=== PATIENT | female | born 1985 | race Caucasian/White ===

== ENCOUNTER 2024-03-13 15:22 | Emergency (ER) | payer OTHER, SELFPAY ==
[2024-03-13 15:24] VITALS: BP 181/110
[2024-03-13 15:48] LABS: Urine Albumin Negative (Neg - Trace); Urine Bilirubin Negative (Negative); Urine Character Clear (Clear); Urine Color Yellow; Urine Glucose Negative (Negative); Urine Ketone Negative (Negative); Urine Leukocyte Trace (Negative); Urine Nitrite Positive (Negative); Urine Occult Blood 2+ (Negative); Urine Urobilinogen 2+ (Neg - 1+)
[2024-03-13 15:49] LABS: % Basophils 0.4 % (0-2); % Eosinophils 0.6 % (0-6); % Immature Granulocytes 0.4 % (0-0.5); % Lymphocytes 20.2 % (20.5-51.1); % Monocytes 11.6 % (1.7-9.3); % Neutrophils 66.8 % (42.2-75.2); Absolute Eosinophils 0.1 10^3/uL (0-0.7); Absolute Lymphocytes 1.6 10^3/uL (1.2-3.4); Absolute Monocytes 0.9 10^3/uL (0.1-0.6); Absolute Neutrophils 5.2 10^3/uL (1.4-6.5); Hematocrit 42.7 % (37.0-47.0); Hemoglobin 14.6 g/dL (12.0-16.0); Mean Corp Hgb Conc. 34.2 g/dL (33.0-37.0); Mean Corpuscular Hgb 31.1 pg (27.0-31.0); Mean Corpuscular Volume 90.9 fL (81.0-99.0); Mean Platelet Volume 10.2 fL (7.4-10.4); Nucleated Red Blood Cells % 0 %; Platelet Count 215 10^3/uL (130-400); Red Cell Dist. Width 12.2 % (11.5-14.5); White Blood Cell Count 7.7 10^3/uL (4.8-10.8)
[2024-03-13 15:51] LABS: HCG, Urine Qualitative Screen Negative
[2024-03-13 16:05] LABS: ALT (SGPT) 59 U/L (0-35); AST (SGOT) 56 U/L (14-36); Alkaline Phosphatase 104 U/L (38-126); Blood Urea Nitrogen 10 mg/dl (7-17); Calcium 9.4 mg/dl (8.4-10.2); Carbon Dioxide 25 mmol/L (22-30); Chloride 100 mmol/L (98-107); Glucose 99 mg/dl (70-99); Potassium 3.9 mmol/L (3.5-5.1); Sodium 138 mmol/L (135-145); Total Bilirubin 1.1 mg/dl (0.2-1.3); eGFR > 60.00
[2024-03-13 16:51] LABS: Urine Bacteria Moderate (Negative); Urine White Cell 0-2 /HPF (0-5)
[2024-03-13 17:29] VITALS: BP 126/77
--- NOTE | 2024-03-13 17:30 | ED.GENMED ---
History of Present Illness
<Maricruz Neal PA-C - Last Filed: 03/16/24 09:03>
General
Chief Complaint: Flank Pain
Source: patient
Exam Limitations: none
Time Seen by Provider: 03/13/24 17:12
Nursing documentation reviewed up to this point in time: agreed with
History of Present Illness
History of Present Illness:
Patient is a 38-year-old female presenting for evaluation emergency department of nausea and associated right upper quadrant abdominal pain. Patient states she was driving to work yesterday when she had acute onset nausea. Waves of nausea have
been intermittent since yesterday and associated with some pain in her epigastric/right upper quadrant. Pain does somewhat radiate around to her right mid back. Patient also endorses subjective fever and chills at home. Patient does not notice
any association of abdominal pain to eating. However�patient has not eaten anything since Monday due to her nausea. Patient denies any chest pain, shortness of breath, hematuria, dysuria, diarrhea or constipation.
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 She has had a past appendectomy. Patient has also had a few instances of pyelonephritis in the past.
Review of Systems
<Maricruz Neal PA-C - Last Filed: 03/16/24 09:03>
Review of Systems
Allergies reviewed?: Yes
All Other Systems: ROS reviewed and negative except as documented in HPI and ROS
Phy Exam
<Maricruz Neal PA-C - Last Filed: 03/16/24 09:03>
Physical Exam
Physical Exam:
Vitals: Patient's vital signs are stable. Afebrile
General: Patient is well appearing, no acute distress. Nontoxic-appearing
Skin: Warm and dry, no rashes or lesions
Head: Normocephalic, atraumatic
Eyes: Sclera nonicteric. EOMs intact. No nystagmus.
Throat: Protecting airway
Neck: Normal ROM, no cervical spine tenderness, no meningismus
Cardiac: Regular rate and rhythm, no murmurs.
Pulm: Normal respiratory effort, no wheezes, rales, rhonchi heard on exam.
Abdomen: Abdomen soft. Mild right upper quadrant abdominal tenderness. Some mild right lower quadrant abdominal tenderness. No rebound tenderness or guarding. Well-healing scar on right lower quadrant from prior appendectomy. No CVA tenderness
bilaterally. No rashes or ecchymoses.
Extremities: No evidence of cyanosis or edema. Great distal pulses
Neuro: AAOx3. CN II-XII intact. No focal neurologic deficits.
Psychiatric: Normal affect.
Course
<Maricruz Neal PA-C - Last Filed: 03/16/24 09:03>
Orders/Labs/Results
Orders:
Orders
03/13/24 15:28
Test Result ONCE
03/13/24 15:35
Complete Blood Count/With Diff Urgent
Comprehensive Metabolic Panel Urgent
03/13/24 15:36
, Urine Qualitative Screen [HCG, Urine Qualitative Screen] Urgent
Date Specimen was Collected: 03/13/24
Time Specimen was Collected: 15:28
Urinalysis Reflex To Culture Urgent
Date Specimen was Collected: 03/13/24
Time Specimen was Collected: 15:28
Urine Microscopic Reflex Cult Urgent
Urine Culture Urgent
MORENA Source: U
Specimen Description:
Date Specimen was Collected: 03/13/24
Time Specimen was Collected: 15:28
03/13/24 17:40
0.9% Sodium Chloride 1000 ml [Nss] 1,000 ml IV BOLUS
Ketorolac [Toradol] 15 mg IV NOW STA
Ondansetron Injectable [Zofran] 4 mg IV NOW STA
03/13/24 17:41
CT Abd/pelvis W Iv Cont Urgent
Comment: hx pyelonephritis and right ovarian torsion
Reason For Exam: Right upper abdominal pain, nausea
03/13/24 21:01
US Pelvis Transvaginal Only Urgent
Reason For Exam: right abd pain, h/o torsion
03/13/24 23:09
CefTRIAXone [Rocephin] 1,000 mg IV NOW STA
03/13/24 23:22
Sterile Water [Sterile Water For Injection] 10 ml .ROUTE .[facility]
Abnormal Lab Results
03/13/24 03/13/24
15:35 15:36
MCH 31.1 H pg
(27.0-31.0)
Absolute Monos (auto) 0.9 H 10^3/uL
(0.1-0.6)
Lymphocytes % 20.2 L %
(20.5-51.1)
Monocytes % 11.6 H %
(1.7-9.3)
AST 56 H U/L
(14-36)
ALT 59 H U/L
(0-35)
Ur Occult Blood Reflex 2+ A
(Negative)
Urine Nitrite (Reflex) Positive A
(Negative)
Urine Urobilinogen 2+ A
(Neg - 1+)
Leukocyte Esterase Rfl Trace A
(Negative)
Urine RBC 7-10 A /HPF
(0-2)
Urine Bacteria (Reflex) Moderate A
(Negative)
03/13/24 15:35
03/13/24 15:35
Vital Signs
Initial and Last Documented VS:
Initial Vital Signs
Temp Pulse Resp BP Pulse Ox
100.1 F 125 22 181/110 98
03/13/24 15:24 03/13/24 15:24 03/13/24 15:24 03/13/24 15:24 03/13/24 15:24
Last Documented Vital Signs
Temp Pulse Resp BP Pulse Ox
98.8 F 72 18 105/78 99
03/13/24 18:57 03/13/24 23:45 03/13/24 23:31 03/13/24 23:45 03/13/24 23:31
<Casimiro Wilkerson MD - Last Filed: 03/14/24 05:15>
Orders/Labs/Results
Orders:
Orders
03/13/24 15:28
Test Result ONCE
03/13/24 15:35
Complete Blood Count/With Diff Urgent
Comprehensive Metabolic Panel Urgent
03/13/24 15:36
, Urine Qualitative Screen [HCG, Urine Qualitative Screen] Urgent
Date Specimen was Collected: 03/13/24
Time Specimen was Collected: 15:28
Urinalysis Reflex To Culture Urgent
Date Specimen was Collected: 03/13/24
Time Specimen was Collected: 15:28
Urine Microscopic Reflex Cult Urgent
Urine Culture Urgent
MORENA Source: U
Specimen Description:
Date Specimen was Collected: 03/13/24
Time Specimen was Collected: 15:28
03/13/24 17:40
0.9% Sodium Chloride 1000 ml [Nss] 1,000 ml IV BOLUS
Ketorolac [Toradol] 15 mg IV NOW STA
Ondansetron Injectable [Zofran] 4 mg IV NOW STA
03/13/24 17:41
CT Abd/pelvis W Iv Cont Urgent
Comment: hx pyelonephritis and right ovarian torsion
Reason For Exam: Right upper abdominal pain, nausea
03/13/24 21:01
US Pelvis Transvaginal Only Urgent
Reason For Exam: right abd pain, h/o torsion
03/13/24 23:09
CefTRIAXone [Rocephin] 1,000 mg IV NOW STA
03/13/24 23:22
Sterile Water [Sterile Water For Injection] 10 ml .ROUTE .[facility]
Abnormal Lab Results
03/13/24 03/13/24
15:35 15:36
MCH 31.1 H pg
(27.0-31.0)
Absolute Monos (auto) 0.9 H 10^3/uL
(0.1-0.6)
Lymphocytes % 20.2 L %
(20.5-51.1)
Monocytes % 11.6 H %
(1.7-9.3)
AST 56 H U/L
(14-36)
ALT 59 H U/L
(0-35)
Ur Occult Blood Reflex 2+ A
(Negative)
Urine Nitrite (Reflex) Positive A
(Negative)
Urine Urobilinogen 2+ A
(Neg - 1+)
Leukocyte Esterase Rfl Trace A
(Negative)
Urine RBC 7-10 A /HPF
(0-2)
Urine Bacteria (Reflex) Moderate A
(Negative)
03/13/24 15:35
03/13/24 15:35
Vital Signs
Initial and Last Documented VS:
Initial Vital Signs
Temp Pulse Resp BP Pulse Ox
100.1 F 125 22 181/110 98
03/13/24 15:24 03/13/24 15:24 03/13/24 15:24 03/13/24 15:24 03/13/24 15:24
Last Documented Vital Signs
Temp Pulse Resp BP Pulse Ox
98.8 F 72 18 105/78 99
03/13/24 18:57 03/13/24 23:45 03/13/24 23:31 03/13/24 23:45 03/13/24 23:31
<Maricruz Neal PA-C - Last Filed: 03/16/24 09:03>
MDM/Problems Addressed
Differential Diagnosis Includes:
Not limited to: Biliary colic, choledocholithiasis, cholecystitis, pyelonephritis, nephrolithiasis, UTI, ovarian torsion, ectopic
MDM/Problems Addressed:
38-year-old female presenting with 2 days of intermittent nausea and right upper quadrant abdominal pain. Subjective fever and chills at home. No urinary symptoms, diarrhea, or constipation. Patient was both hypertensive and tachycardic on
arrival to emergency department but vital signs normalized by my first examination. Physical exam as above. She is well-appearing, in no apparent distress. Heart regular rate and rhythm. Lungs can bilaterally. Abdomen is soft with mild right
upper quadrant and right lower quadrant abdominal tenderness. No rebound tenderness or guarding. Well-healing scar in right lower quadrant from prior appendectomy. Patient is asymptomatic at this time as symptoms seem to come in waves. Labs
obtained in triage show a normal white count with mild elevation in AST and ALT. No other significant abnormalities. Urine does show blood although no clear evidence of urinary infection. Urine is positive for nitrate with moderate bacteria
although patient has no urinary symptoms and no pyuria. test is negative. Will give Toradol, Zofran, fluids. Will check CT abdomen/pelvis with IV contrast for better evaluation.
Patient does have history of ovarian torsion secondary to dermoid cyst. Low suspicion for ovarian torsion today. Plan for ultrasound if CT nondiagnostic to rule out torsion.
7:28: Into reassess patient at bedside. Patient remains comfortable. Pain well-managed with Toradol. CT report pending. At this point- case was signed out to attending physician.
Chronic conditions affecting care:
N/A
Acute Exacerbation and/or Progression of Chronic Illness:
N/A
<Maricruz Neal PA-C - Last Filed: 03/16/24 09:03>
*Pulse Oximetry
Patient hypoxic: no
*EKG
Interpreted by ED Provider?: NA
*Mainframe Programmer Analyst Interpretation
Rate: Mainframe Programmer Analyst- N/A
*Critical Care Note
Total Time (30-74mins, 75-104mins- exclusive of procedures): Not Applicable
ED Attending Note
<Maricruz Neal PA-C - Last Filed: 03/16/24 09:03>
-
Portions of this chart may have been created with voice recognition software.� Occasional wrong word or��sound alike� substitutions may have occurred due to the inherent limitations of voice recognition software.
<Casimiro Wilkerson MD - Last Filed: 03/14/24 05:15>
ED Attending Note
Patient seen and examined by attending physician: Yes
ED Attending Note:
I have seen and evaluated the patient with a [id number] encounter. I have spoken to the advance practicer provider and involved in the medical history, the physical exam, medical decision making.
Evaluation and management service: agree unless noted differently below.
Results interpretation: agree unless noted differently below.
Focused HPI: 38-year-old female with history as document presents for evaluation of right abdominal pain and nausea. Patient reports she started with nausea yesterday and in the evening began to have some right-sided abdominal/flank pain. She says
symptoms have been consistent although intensity seems to wax and wane. Came to the emergency room for assessment. She did have subjective fever and chills. She says she has not had dysuria but has had increased urgency. She denies any vaginal
bleeding or discharge. She denies any change in bowel movements. She denies any other complaints. She does have a prior history of appendectomy. She also had a prior ovarian torsion related to a large dermoid cyst that was ultimately removed,
right ovary was spared.
Physical exam: Awake alert not in distress. Hypertensive and tachycardic on arrival although vital signs normalized by my assessment. Abdomen soft, minimally tender right upper quadrant, no peritoneal signs. No CVA tenderness.
Medical Decision Makin-year-old female presents for evaluation of nausea associated with abdominal discomfort. Exam as above. Sent for labs including a CBC which was unremarkable, CMP which showed marginal elevation of transaminases but a
normal T. bili. Urinalysis showed positive nitrites with bacteria and some slight hematuria no significant pyuria. Her hCG is negative. She was initially sent for a CT of the abdomen pelvis which showed no clear acute pathology�no obstructive
nephrolithiasis, no gallstones or signs of cholecystitis, no other acute pathology noted. She does have a history of frequent UTIs and has had some urinary symptoms with abnormal urinalysis�pyelonephritis is a consideration. Given her history of
that we should rule out torsion with an ultrasound.
Ultrasound shows good flow to both ovaries. Patient appears well, she says symptoms have greatly improved with treatment here. Vital signs normal. I had a long discussion with the patient. I did explain theoretic possibility of intermittent
torsion although without cyst or mass this is much less likely. We also discussed the possibility that her 2 mm intrarenal stone could be causing intermittent transient obstructive symptoms. We also discussed the possibility of pyelonephritis as
the cause for her symptoms. She feels well enough for discharge at this point and after discussion we will plan to start her on antibiotics for possible UTI. I did explain to her that she should have a very low threshold for return including if
she is still having high fevers despite antibiotics or if she feels her pain is returning and persisting. She indicated understanding. All questions answered.
Discharge Plan
Departure
Patient Disposition: Home (Routine Discharge)
Date of Disposition: 03/13/24
Time of Disposition: 23:08
Patient with high blood pressure during this ER visit?: Yes
Discharge Problem:
Abdominal pain, UTI (urinary tract infection)
Instructions: Abdominal Pain
Prescriptions:
New
cefdinir 300 mg capsule
300 mg PO BID 7 Days Qty: 14 0RF
Referrals:
NONE,* [Family Provider] -
Activity Restrictions/Additional Instructions:
Thank you for visiting the Emergency Department at [facility].
1. Please schedule a follow up appointment as directed. Call first thing tomorrow morning to make an appointment.
2. If indicated, please take your medications as instructed and indicated on discharge paperwork.
3. If any of your symptoms do not improve, or persist, or become more severe within 6-12 hours, please return to the emergency department for further care.
4. Please return to the emergency department if you develop a headache, neck pain/stiffness, fever greater than 100.4F, chest pain, shortness of breath, persistent nausea, vomiting, slurred speech, difficulty walking, numbness/tingling, weakness,
signs of infection or any other symptoms that are worrisome to you.
Please call [phone] if you have any questions.
Interventions
Interventions:
*Risk Screen - Suicide Last Done: 03/13/24 15:27
*General Assessment Last Done: 03/13/24 15:27
*Neglect/Abuse Screening Last Done: 03/13/24 15:27
ED- Fall Risk Assessment Last Done: 03/13/24 17:34
*Nursing Disposition Last Done: 03/13/24 23:45
QM-Gadkza-Ksostqwnps Assessment Last Done: 03/13/24 17:34
ED-Female Genitourinary Assessment Last Done: 03/13/24 17:34
Discharge Date and Time
Discharge Date/Time: 03/13/24 23:46
Print Language: ICELANDIC
[2024-03-13] MEDS: TORADOL 15 MG IV (17:51)
[2024-03-13] MEDS: ZOFRAN 4 MG IV (17:51)
[2024-03-13] MEDS: NSS 1000 IV (17:52)
[2024-03-13 18:30] VITALS: BP 131/74
[2024-03-13] MEDS: ROCEPHIN 1000 MG IV (23:25)
[2024-03-13 23:31] VITALS: BP 105/78
[2024-03-13 23:45] VITALS: BP 105/78
== END 2024-03-13 23:46 | disposition home or self-care (01) ==
LOC: EMR 15:22
PROVIDERS: Emergency Medicine; EMERGENCY PHYSICIAN Emergency Medicine
DX: R10.11 Right upper quadrant pain (principal); Z86.018 Personal history of other benign neoplasm
CPT/HCPCS: 99284; 96374; 96375; 96361; 74177; 76830; 80053; 81003; 81015; 81025; 85025; 87077; 87086; 87186; Q9967

== ENCOUNTER → 2024-05-08 08:28 | Outpatient (REF) | payer OTHER, SELFPAY | LOC: HWRAD 08:28 | PROVIDERS: ATTENDING PHYSICIAN Family Medicine | DX: R10.11 Right upper quadrant pain (principal) | CPT/HCPCS: 76700 ==

== ENCOUNTER 2024-05-09 01:27 | Emergency (ER) | payer OTHER, SELFPAY ==
[2024-05-09 01:37] VITALS: BP 135/86
[2024-05-09 02:35] LABS: % Basophils 0.4 % (0-2); % Eosinophils 1.5 % (0-6); % Immature Granulocytes 0.2 % (0-0.5); % Lymphocytes 31.5 % (20.5-51.1); % Monocytes 5.8 % (1.7-9.3); % Neutrophils 60.6 % (42.2-75.2); Absolute Eosinophils 0.1 10^3/uL (0-0.7); Absolute Lymphocytes 2.8 10^3/uL (1.2-3.4); Absolute Monocytes 0.5 10^3/uL (0.1-0.6); Absolute Neutrophils 5.4 10^3/uL (1.4-6.5); Hematocrit 38.8 % (37.0-47.0); Hemoglobin 14.2 g/dL (12.0-16.0); Mean Corp Hgb Conc. 36.6 g/dL (33.0-37.0); Mean Corpuscular Hgb 31.5 pg (27.0-31.0); Mean Platelet Volume 10.1 fL (7.4-10.4); Nucleated Red Blood Cells % 0 %; Platelet Count 262 10^3/uL (130-400); Red Blood Cell Count 4.51 10^6/uL (4.20-5.40); Red Cell Dist. Width 12.7 % (11.5-14.5); Urine Albumin Negative (Neg - Trace); Urine Bilirubin Negative (Negative); Urine Character Clear (Clear); Urine Color Yellow; Urine Glucose Negative (Negative); Urine Ketone Negative (Negative); Urine Leukocyte Trace (Negative); Urine Nitrite Negative (Negative); Urine Occult Blood Negative (Negative); Urine Urobilinogen Negative (Neg - 1+)
--- NOTE | 2024-05-09 02:40 | ED.GENMED ---
History of Present Illness
<Amada Sams NP - Last Filed: 05/12/24 20:34>
General
Chief Complaint: Abdominal Pain
Source: patient
Exam Limitations: none
Time Seen by Provider: 05/09/24 02:44
Nursing documentation reviewed up to this point in time: agreed with
History of Present Illness
History of Present Illness:
Patient to ED with complaint of severe nausea, RUQ fullness. States she was seen here in March for same. Had CT and US without findings to explain her symptoms. SHe was placed on antibiotics for UTI at that visit howevere the RUQ
fulllness/discomfort and nausea persists. SHe was sent for Upper abd. US this AM, normal exam. SHe was also referred on to GI and has an appt scheduled for . States she woke from sleep tonight with severe nausea and RUQ discomfort. Brought
self to ED for eval. No fever/chills.
Past History
<Amada Sams NP - Last Filed: 05/12/24 20:34>
Past History
ED Past Medical History: None
ED Past Surgical History: Appendectomy and Gynecological (right ovary dermoid cyst)
Review of Systems
<Amada Sams NP - Last Filed: 05/12/24 20:34>
Review of Systems
Allergies reviewed?: Yes
All Other Systems: ROS reviewed and negative except as documented in HPI and ROS
Constitutional: Reports no symptoms
EENT: Reports no symptoms
Respiratory: Reports no symptoms
Cardiac: Reports no symptoms
ABD/GI: Reports abdominal pain and nausea
: Reports no symptoms
Musculoskeletal: Reports no symptoms
Skin: Reports no symptoms
Neurological: Reports no symptoms
Psychiatric: Reports no symptoms
Phy Exam
<Amada Sams NP - Last Filed: 05/12/24 20:34>
General Physical Exam
General Presentation: well appearing and no apparent distress
General age: appears stated age
General Skin: warm and dry
General Habitus: normal
General Mental: alert
Cardiovascular Exam
Cardiovascular Exam: regular rate/rhythm and no edema
Pulmonary Exam
Pulmonary Exam: lungs clear and no respiratory distress
Gastrointestinal Exam
Gastrointestinal Exam: normal bowel sounds, soft, no organomegaly, non distended and no cva tenderness
Palpation: left upper quadrant: No tenderness, left lower quadrant: No tenderness, right upper quadrant: Minimal tenderness and right lower quadrant: No tenderness
Musculoskeletal Exam
Musculoskeletal Exam: full ROM and neuro vasc intact
Skin Exam
Skin Exam: normal color, warm/dry and no rash
Psychiatric Exam
Psychiatric Exam: normal mood/affect
Course
<Amada Sams NP - Last Filed: 05/12/24 20:34>
Orders/Labs/Results
Orders:
Orders
05/09/24 01:45
Test Result ONCE
05/09/24 02:24
Complete Blood Count/With Diff Urgent
Comprehensive Metabolic Panel Urgent
HCG, Serum Qualitative Screen Urgent
Lipase Urgent
Urinalysis Reflex To Culture Urgent
Date Specimen was Collected: 05/09/24
Time Specimen was Collected: 01:45
Urine Microscopic Reflex Cult Urgent
Urine Culture Urgent
MORENA Source: U
Specimen Description:
Date Specimen was Collected: 05/09/24
Time Specimen was Collected: 01:45
05/09/24 02:39
0.9% Sodium Chloride 1000 ml [Nss] 1,000 ml IV BOLUS
Ondansetron Injectable [Zofran] 4 mg IV NOW STA
05/09/24 04:19
Ketorolac [Toradol] 15 mg IV NOW STA
Pantoprazole [Protonix IV] 40 mg IV NOW STA
Abnormal Lab Results
05/09/24
02:24
MCH 31.5 H pg
(27.0-31.0)
Glucose 129 H mg/dl
(70-99)
AST 59 H U/L
(14-36)
ALT 88 H U/L
(0-35)
Leukocyte Esterase Rfl Trace A
(Negative)
Urine Bacteria (Reflex) Many A
(Negative)
05/09/24 02:24
05/09/24 02:24
Vital Signs
Initial and Last Documented VS:
Initial Vital Signs
Temp Pulse Resp BP Pulse Ox
98.1 F 96 18 135/86 98
05/09/24 01:37 05/09/24 01:37 05/09/24 01:37 05/09/24 01:37 05/09/24 01:37
Last Documented Vital Signs
Temp Pulse Resp BP Pulse Ox
98.1 F 96 18 135/86 98
05/09/24 01:37 05/09/24 01:37 05/09/24 01:37 05/09/24 01:37 05/09/24 01:37
<Norma Brody, DO - Last Filed: 05/09/24 04:45>
Orders/Labs/Results
Orders:
Orders
05/09/24 01:45
Test Result ONCE
05/09/24 02:24
Complete Blood Count/With Diff Urgent
Comprehensive Metabolic Panel Urgent
HCG, Serum Qualitative Screen Urgent
Lipase Urgent
Urinalysis Reflex To Culture Urgent
Date Specimen was Collected: 05/09/24
Time Specimen was Collected: 01:45
Urine Microscopic Reflex Cult Urgent
Urine Culture Urgent
MORENA Source: U
Specimen Description:
Date Specimen was Collected: 05/09/24
Time Specimen was Collected: 01:45
05/09/24 02:39
0.9% Sodium Chloride 1000 ml [Nss] 1,000 ml IV BOLUS
Ondansetron Injectable [Zofran] 4 mg IV NOW STA
05/09/24 04:19
Ketorolac [Toradol] 15 mg IV NOW STA
Pantoprazole [Protonix IV] 40 mg IV NOW STA
Abnormal Lab Results
05/09/24
02:24
MCH 31.5 H pg
(27.0-31.0)
Glucose 129 H mg/dl
(70-99)
AST 59 H U/L
(14-36)
ALT 88 H U/L
(0-35)
Leukocyte Esterase Rfl Trace A
(Negative)
Urine Bacteria (Reflex) Many A
(Negative)
05/09/24 02:24
05/09/24 02:24
Vital Signs
Initial and Last Documented VS:
Initial Vital Signs
Temp Pulse Resp BP Pulse Ox
98.1 F 96 18 135/86 98
05/09/24 01:37 05/09/24 01:37 05/09/24 01:37 05/09/24 01:37 05/09/24 01:37
Last Documented Vital Signs
Temp Pulse Resp BP Pulse Ox
98.1 F 96 18 135/86 98
05/09/24 01:37 05/09/24 01:37 05/09/24 01:37 05/09/24 01:37 05/09/24 01:37
<Amada Sams NP - Last Filed: 05/12/24 20:34>
*Critical Care Note
Total Time (30-74mins, 75-104mins- exclusive of procedures): Not Applicable
ED Attending Note
<Amada Sams NP - Last Filed: 05/12/24 20:34>
-
Portions of this chart may have been created with voice recognition software.� Occasional wrong word or��sound alike� substitutions may have occurred due to the inherent limitations of voice recognition software.
<Norma Brody, DO - Last Filed: 05/09/24 04:45>
ED Attending Note
Patient seen and examined by attending physician: Yes
I performed a history and physical exam of patient and discussed management with resident, I reviewed resident's note and agree with documented findings and plan of care.: Yes
ED Attending Note:
This is a 38-year-old woman who complains of right upper quadrant pain that began early March, evaluated in this ED March 13 for very similar right upper quadrant pain accompanied with nausea. Unremarkable laboratory studies at that time save for
minimally elevated LFTs. Urinalysis suspicious for UTI and she was treated with cefdinir. Urine culture returned positive for E. coli. Despite antibiotic she has had no improvement in right upper quadrant pain that persists for near 2 months with
intermittent episodes of severe pain waking her from sleep accompanied with diaphoresis, nausea, restlessness.
She has an initial appointment with GI scheduled for May 14.
She underwent outpatient abdominal ultrasound yesterday which showed distended gallbladder but no evidence of stones nor sludge, no evidence of cholecystitis nor biliary obstruction. Negative Whitten sign.
She presents tonight with persistent nausea, continued right upper quadrant pain. No fever nor chills.
Exam remarkable for mild to moderate tenderness right upper quadrant without rebound or guarding. No CVA tenderness.
Concern for intermittent biliary colic other consideration is gastritis/peptic ulcer disease.
Labs thus far reveal unremarkable CBC with normal white blood cell count. LFTs again minimally elevated, similar to previous. Lipase is normal.
Urinalysis shows many bacteria but greater than 30 squamous epithelial cells and only 6-10 WBCs consistent with contaminated specimen. She has not had UTI symptoms.
Nausea has improved with Zofran. Will trial IV Toradol and Protonix.
Labs are reassuring and not suspicious for cholecystitis and ultrasound reassuring as well.
Would recommend initiation of a PPI for potential gastritis/peptic ulcer disease.
Recommend bland diet avoiding fatty, fried foods, avoid spicy foods.
Zofran for as needed nausea.
Follow-up with GI as already scheduled.
Discharge Plan
Departure
Patient Disposition: Home (Routine Discharge)
Date of Disposition: 05/09/24
Time of Disposition: 04:43
Patient with high blood pressure during this ER visit?: No
Condition: Good
Discharge Problem:
Abdominal pain, RUQ
Instructions: Gastritis, [place] Diet, Low-fat diet
Prescriptions:
New
pantoprazole [Protonix] 40 mg tablet,delayed release (DR/EC)
40 mg PO DAILY Qty: 30 0RF
ondansetron 4 mg tablet,disintegrating
4 mg PO QID PRN (Reason: nausea and vomiting) Qty: 20 0RF
No Action
cefdinir 300 mg capsule
300 mg PO BID 7 Days Qty: 14 0RF
Referrals:
Lexi Leon MD [Family Provider] - Call in 1-3 days for appt
Interventions
Interventions:
*Risk Screen - Suicide Last Done: 05/09/24 03:00
*General Assessment Last Done: 05/09/24 03:00
*Neglect/Abuse Screening Last Done: 05/09/24 03:00
*Nursing Disposition Last Done: 05/09/24 04:54
HU-Czfzme-Qvlzvlcuig Assessment Last Done: 05/09/24 02:50
Discharge Date and Time
Discharge Date/Time: 05/09/24 04:54
Print Language: WELSH
[2024-05-09 02:46] LABS: HCG, Serum Qualitative Screen Negative
[2024-05-09] MEDS: ZOFRAN 4 MG IV (02:48)
[2024-05-09] MEDS: NSS 1000 IV (02:48)
[2024-05-09 02:49] LABS: ALT (SGPT) 88 U/L (0-35); AST (SGOT) 59 U/L (14-36); Albumin 4.8 g/dl (3.5-5.0); Alkaline Phosphatase 76 U/L (38-126); Blood Urea Nitrogen 14 mg/dl (7-17); Carbon Dioxide 29 mmol/L (22-30); Chloride 102 mmol/L (98-107); Glucose 129 mg/dl (70-99); Lipase 131 U/L (23-300); Potassium 4.1 mmol/L (3.5-5.1); Sodium 142 mmol/L (135-145); Total Bilirubin 0.5 mg/dl (0.2-1.3); Total Protein 7.3 g/dl (6.3-8.2); eGFR > 60.00
[2024-05-09 03:56] LABS: Urine Bacteria Many (Negative); Urine Red Blood Cell 0-2 /HPF (0-2); Urine Squamous Cell >30 /LPF (Few)
[2024-05-09] MEDS: PROTONIX IV 40 MG IV (04:25)
[2024-05-09] MEDS: TORADOL 15 MG IV (04:25)
== END 2024-05-09 04:54 | disposition home or self-care (01) ==
LOC: EMR 01:27
PROVIDERS: EMERGENCY PHYSICIAN Emergency Medicine; FAMILY PHYSICIAN Family Medicine
DX: R10.11 Right upper quadrant pain (principal); R11.0 Nausea; K82.8 Other specified diseases of gallbladder; Z87.440 Personal history of urinary (tract) infections
CPT/HCPCS: 99284; 96374; 96375 ×2; 96361; 80053; 81003; 81015; 83690; 84703; 85025; 87077; 87086; 87186